=== PATIENT | male | born 1950 | race Asian ===

== ENCOUNTER → 2024-06-07 | Outpatient (CLI) | payer SELFPAY ==
--- NOTE | 2024-06-07 08:27 | MRI_ITS ---
HISTORY: Lumbar pain x 2 years. TECHNIQUE: Multiplanar and multisequence MR images of the lumbar spine were obtained without intravenous contrast. 172 images. COMPARISON: CR same day. FINDINGS: VERTEBRAE: Vertebral body heights maintained. Mild degenerative endplate changes at multiple levels. Small L2 and L4 vertebral body hemangiomas incidentally noted. ALIGNMENT: No anterior or posterior subluxation. Mild scoliosis. CONUS: Normal morphology and position of the conus medullaris at L2. Tortuosity and redundancy of cauda equina nerve roots secondary to spinal canal stenosis. INTERVERTEBRAL DISCS: T12-L1: No significant posterior disc protrusion, central canal stenosis, or foraminal narrowing. L1-2: Mild right paracentral disc protrusion with facet arthropathy resulting in minimal narrowing of the thecal sac. No significant foraminal narrowing. L2-3: Mild disc bulge with facet arthropathy resulting in mild central canal stenosis and bilateral foraminal narrowing. L3-4: Mild disc bulge with facet arthropathy resulting in mild-moderate central canal stenosis and bilateral foraminal narrowing. L4-5: Moderate left paracentral disc protrusion with facet arthropathy resulting in left L5 nerve root impingement, severe central canal stenosis, moderate bilateral foraminal narrowing. L5-S1: Posterior disc protrusion with facet arthropathy resulting in mild-moderate central canal stenosis and moderate bilateral foraminal narrowing. SOFT TISSUES: No paraspinal fluid collection. MRI/Spine Lumbar (Routine) IMPRESSION: Multilevel degenerative disc disease as above. Left paracentral disc protrusion at L4-5 resulting in severe spinal canal stenosis, left nerve root impingement, and moderate bilateral foraminal narrowing. Electronically Signed: Mera Lilly MD at 15:23 EDT ,
--- NOTE | 2024-06-07 09:27 | RAD_ITS ---
INDICATION: Worsening low back pain EXAMINATION/TECHNIQUE: X-RAY - XR Spine Lumbar Min 4 Views COMPARISON: None. FINDINGS: VERTEBRAE: Preserved vertebral body height. No fracture. 4 mm retrolisthesis L2-3, 2 mm retrolisthesis L3-4, 6 mm spondylolisthesis L4-5. Minimal change on flexion and extension lateral views. Preservation of the normal lumbar lordosis. DISCS: Degenerative disc space narrowing at L3-4 and L4-5. INCLUDED ABDOMEN: Included bowel gas pattern is non-obstructive. RAD/L/S Spine Min 4 Views IMPRESSION: Degenerative disc disease without evidence of significant instability. Electronically Signed: Louis Mar MD at 17:03 EDT ,
== END | disposition home or self-care (01) ==
PROVIDERS: Referring Provider Orthopaedic Surgery Orthopaedic Surgery of the Spine; Visit Provider Orthopaedic Surgery Orthopaedic Surgery of the Spine
DX: M48.062 Spinal stenosis, lumbar region with neurogenic claudication (principal)
CPT/HCPCS: 72110; 72148

== ENCOUNTER 2024-06-11 15:08 | Inpatient (IN) | payer SELFPAY ==
--- NOTE | 2024-06-09 12:08 | EKG12_ITS ---
Test Reason : PREOP Blood Pressure : / mmHG Vent. Rate : 072 BPM Atrial Rate : 072 BPM P-R Int : 124 ms QRS Dur : 080 ms QT Int : 364 ms P-R-T Axes : 057 023 067 degrees QTc Int : 398 ms Normal sinus rhythm Nonspecific T wave abnormality Abnormal ECG Confirmed by ARMINDA VIERA, TISHA ([id number]), story editor PARKER AMES ([id number]) on 06/09/2024 1:23:17 PM Referred By: STANLEY Confirmed By:TISHA HILLIARD MD
[2024-06-09 13:33] LABS: Absolute Lymphocyte Count 1.51 X10^3/uL (0.83-4.51); Basophil# 0.06 X10^3/uL; Basophil% 0.9 % (0-1); Eosinophil# 0.36 X10^3/uL; Eosinophils% 5.5 % (0-5); Hematocrit 41.3 % (40-54); Hemoglobin 12.8 g/dL (13.0-16.5); Lymphocyte # 1.51 X10^3/ul (0.83-4.51); Lymphocyte % 23.1 % (19-41); Mean Corpuscular Volume 83.8 fL (80-94); Mean Platelet Vol. 9.2 fl (6.2-12.0); Monocyte# 0.62 X10^3/uL; Monocyte% 9.5 % (0-10); NRBC Flagged by Analyzer 0 % (0-5); Neutrophil # 3.97 X10^3/uL (2.7-7.7); Neutrophil % 60.7 % (47-70); Platelet Count 418 K/mm3 (150-450); RBC Distribution Width CV 15.2 % (11.6-14.6); RBC Distribution Width SD 45.8 fl (35.1-43.9); Red Blood Count 4.93 M/mm3 (4.6-6.2); White Blood Count 6.5 K/mm3 (4.4-11.0)
[2024-06-09 13:53] LABS: Magnesium 2.1 mg/dL (1.6-2.6)
[2024-06-09 13:56] LABS: Anion Gap 5 (5-15); BUN 16 mg/dL (7-18); BUN/Creat Ratio 14.2 RATIO (10-20); Calcium,Total 8.9 mg/dL (8.5-10.1); Chloride 102 mmol/L (98-107); Creatinine, Serum 1.13 mg/dL (0.70-1.30); EST Glomerular Filtration Rate 67 mL/min (>60); Est Glom Filt Rate - Afr Amer 81 mL/min (>60); Glucose 87 mg/dL (74-106); Potassium 3.8 mmol/L (3.5-5.1); Sodium Level 136 mmol/L (136-145)
[2024-06-11] VITALS (16 sets, daily range): BP systolic 102–195; BP diastolic 48–115; PULSE 62–82; RESP 13–18; TEMP 36.1–36.9; O2SAT 95–100; BMI 27.4; BMI 27.3
[2024-06-11] MEDS: Lactated Ringers 1,000 ML 15 ML IV ×4 (06:14→21:31)
[2024-06-11] MEDS: Magnesium 1 GM over 15 mins IV (06:14)
[2024-06-11 06:43] LABS: Bedside Glucose 74 mg/dL (74-106)
--- NOTE | 2024-06-11 07:09 | PCM.PRE.AN2 ---
ASA Classification* ASA Classification ASA Classification: 3 Assessment & Plan Anesthesia* Anesthesia Assessment Anesthesia Assessment: Discussed sedation and/or anesthesia options, risks, benefits, and alternatives with patient/parents/legal guardian/POA. Questions invited. The patient/parents/legal guardian/POA seems to understand and agrees to proceed with anesthesia plan. Reviewed the physical assessment, medical history, allergy history and patient home medications list prior to surgery/procedure/anesthetic and documented any changes. Performed airway and anesthesia risk assessments. Anesthesia Type Anesthesia Type: General (Minimize narcotics) Anesthesia Focused Assessment* Temperature: 98.5 F Pulse Rate: 70 Blood Pressure: 148/70 Respiratory Rate: 16 Pulse Ox: 100 Airway Assessment Mouth opens: >3 cm Mallampati Score: II Focused Labs Anesthesia Preop lab: CBC WBC 6.5 K/mm3 (4.4-11.0) 06/09/24 12:43 RBC 4.93 M/mm3 (4.6-6.2) 06/09/24 12:43 Hgb 12.8 g/dL (13.0-16.5) L 06/09/24 12:43 Hct 41.3 % (40-54) 06/09/24 12:43 Plt Count 418 K/mm3 (150-450) 06/09/24 12:43 CHEMISTRY Potassium 3.8 mmol/L (3.5-5.1) 06/09/24 12:43 Sodium 136 mmol/L (136-145) 06/09/24 12:43 Magnesium 2.1 mg/dL (1.6-2.6) 06/09/24 12:43 BUN 16 mg/dL (7-18) 06/09/24 12:43 Creatinine 1.13 mg/dL (0.70-1.30) 06/09/24 12:43 Glucose 87 mg/dL (74-106) 06/09/24 12:43 POC Glucose 74 mg/dL (74-106) 06/11/24 06:09 COAG Pre-Assessment Diagnosis/Proposed Procedure Planned Operative Procedure(s): 360 LUMBAR FUSION L4-5 POSS INCLUDE L5-S1 Anesthesia History Anesthesia History - financial management consultant: Anesthesia History - financial management consultant Hx Hospitalization No 06/08/24 11:39 Any Problems With Anesthesia No 06/08/24 11:39 Cholinesterase deficiency No 06/08/24 11:39 You/Your Family Experience No 06/08/24 11:39 fever (hyperthermia) with Relationship Recent Exposure to Contagious No 06/11/24 06:04 Disease Does patient have nerve No 06/08/24 11:39 stimulator Patient instructed to have device shut off --Does patient have Pacemaker No 06/11/24 06:04 or ICD? When Was Last Pacemaker Check QUESTION #4 FULL TEXT: You/Your Family Experience fever (hyperthermia) with Anesthesia Last Oral Intake Last Oral intake: Last Oral Intake NPO since 03:30 06/11/24 06:04 Meds taken in AM with sips of Yes 06/11/24 06:04 water? Meds patient instructed to see mar 06/11/24 06:04 take am of surgery PONV PONV - financial management consultant: PONV - financial management consultant Female No 06/08/24 11:39 HX of Motion Sickness No 06/08/24 11:39 HX of N/V After Surgery No 06/08/24 11:39 Non-Smoker Yes 06/08/24 11:39 Duration of Surgery greater Yes 06/08/24 11:39 than 60 minutes Number of Risk Factors 2 06/08/24 11:39 PONV Score Moderate Risk 06/08/24 11:39 Height & Weight Height & Weight: Anesthesia: Height & Weight Height 5 ft 4 in 06/11/24 06:04 Weight: 72.575 kg 06/11/24 06:04 Body Mass Index (BMI) 27.4 06/11/24 06:04 Respiratory Assessment Respiratory Assessment - financial management consultant: Respiratory Tract Infection Hx - financial management consultant Hx Respiratory Tract Infection No 06/08/24 11:39 STOP Sleep Apnea STOP Sleep Apnea - financial management consultant: STOP Sleep Apnea - financial management consultant Hx Hypertension Yes: CONTROLLED WITH MEDS 06/08/24 11:39 Hx Sleep Apnea No 06/08/24 11:39 CPAP BIPAP Do you snore loudly (louder Yes 06/08/24 11:39 than talking or can be heard Do you often feel tired/ No 06/08/24 11:39 fatigued/ sleepy during daytime? Has anyone observed you stop No 06/08/24 11:39 breathing during sleep? STOP Results Positive 06/08/24 11:39 QUESTION #5 FULL TEXT : Do you snore loudly (louder than talking or can be heard through closed doors)? Tobacco Use History Tobacco Use History - financial management consultant: Tobacco Use History - financial management consultant Tobacco Use Smoking Status Former smoker 06/08/24 11:39 Hx Tobacco Use No 06/08/24 11:39 Years Smoking Packs Smoked per Day Smoking Cessation Date was Yes - quit smoking within 15 06/08/24 11:39 within the last 15 years years Hx Smoking Cessation Date 11/17/20 06/08/24 11:39 Hx Smoking Cessation No 06/08/24 11:39 Counseling Hematologic Medial History Hematologic Hx - financial management consultant: Hematologic Medical Hx - singe winder Hx of Blood Transfusion No 06/08/24 11:39 Hx of Transfusion in last 3 No 06/08/24 11:39 Months Date of Last Transfusion (if within last 3 months) Ever experience any problems No 06/08/24 11:39 with transfusion(s)? Specify any problems Hx of Preganancy in last 3 N/A 06/08/24 11:39 Months Nurse Filling Out Transfusion DSCHRIBER 06/08/24 11:39 & Questions: Date: 06/08/24 06/08/24 11:39 Time: 11:41 06/08/24 11:39 Patient unable to answer at this time (ie. confused, unrespo /Reproduction History /Reproductive History - financial management consultant: /Reproductive Hx- financial management consultant Hx Now No 06/08/24 11:39 Gestational Age (in weeks): EDC: Hx Hx Para Hx Section SAB No 06/08/24 11:39 Active Medications Active Medications: Current Medications Generic Name Dose Route Start Last Admin Trade Name Freq PRN Reason Stop Dose Admin Magnesium Sulfate 1 gm/ 102 mls @ 408 mls/hr 06/11/24 07:30 06/11/24 06:14 Dextrose IV 06/11/24 07:44 408 mls/hr X1 ONE Administration Lactated Ringer's 1,000 mls @ 15 mls/hr 06/11/24 06:00 06/11/24 06:14 IV 15 mls/hr .Q48H ANTON Administration PFSH Medical History Wears glasses Alcohol use Gout Arthritis Bladder disease History of renal disease Anemia Back pain Gastric reflux Former smoker History of pain when walking Hypertension Hx of fracture of wrist Home Medications ?Medication ?Instructions ?Recorded ?Last Taken ?Type DOMPERIDONE 30 mg PO QODAY 06/08/24 Unknown History amlodipine 5 mg tablet 5 mg PO DAILY bp 06/08/24 06/11/24 03:30 History carboxymethylcellulose 0.5 1 drp EACH EYE DAILY 06/08/24 Unknown History %-glycerin 0.9 % eye drops clonazepam 0.25 mg disintegrating 0.25 mg PO QHS 06/08/24 Unknown History tablet febuxostat 40 mg tablet 40 mg PO QHS 06/08/24 Unknown History indapamide 1.25 mg tablet 1.5 mg PO DAILY 06/08/24 Unknown History mecobalamin (vitamin B12) 1,000 750 mcg PO DAILY 06/08/24 Unknown History mcg lozenges pantoprazole 40 mg tablet,delayed 40 mg PO DAILY 06/08/24 Unknown History release (Protonix) pregabalin 75 mg capsule 75 mg PO QHS 06/08/24 Unknown History tamsulosin 0.4 mg capsule (Flomax) 0.4 mg PO QHS 06/08/24 Unknown History telmisartan 20 mg tablet 20 mg PO DAILY bp 06/08/24 06/11/24 03:30 History Allergy/AdvReac Type Severity Reaction Status Date / Time No Known Allergies Allergy Verified 06/11/24 06:03 Social History Smoking Status: Former smoker Review of Systems (Anesthesia) ROS Narrative System reviewed and no additional complaints, except as documented.
[2024-06-11] MEDS: Acetaminophen 500 MG Tablet 1000 MG PO ×3 (07:28→21:40)
--- NOTE | 2024-06-11 07:30 | RAD_ITS ---
STUDY: X-RAY - LUMBAR SPINE REASON FOR EXAM: Male, 73 years old. FUSION TECHNIQUE: 3 view(s) of the lumbar spine were obtained. COMPARISON: None FINDINGS: Intraoperative imaging provided for fusion at the L4-L5 level with prosthetic disc placement. RAD/Lumbar Spine 2 or 3 Views IMPRESSION: Intraoperative imaging provided for fusion at the L4-L5 level with prosthetic disc placement. Electronically Signed: Emery Pina MD at 13:43 EDT ,
[2024-06-11] MEDS: Cefazolin 2 GM in 0.9% Normal Saline (100mL Bag) 100 ML IV (07:39)
[2024-06-11] MEDS: THROMBIN (RECOMBINANT) 20,000 UNIT VIAL 20000 UNIT TOPICAL (11:10)
[2024-06-11] MEDS: Ropivacaine 0.5% 30 ML Vial (11:10)
[2024-06-11] MEDS: Lactated Ringers 1,000 ML 100 ML IV (12:00)
--- NOTE | 2024-06-11 12:57 | PCM.OPRPT ---
Report of Operation Description of Surgical Findings:: Preoperative diagnosis: Degenerative spondylolisthesis with spinal stenosis L4-5 Postoperative diagnosis: Same Procedures: #1 oblique lumbar interbody fusion minimally invasive #2 anterior lateral spinal fusion CPT code 56066 #3 insertion of cage CPT code 33856 #4 bone graft aspirate from vertebral body CPT code 70007 Surgeon: Dr. Doran Readers' Advisory Service Librarian surgeons Dr. More and Dr. Lamar Estimated blood loss 50 cc Anesthesia General endotracheal administered by [facility] Drains: None Complications: None Procedure patient was taken to the OR where he was placed under general endotracheal anesthesia he was then placed in the left right lateral decubitus position on the OR table. A Yepez catheter was inserted. The patient was then placed in the right lateral decubitus position and secured. Using fluoroscopy we were able to desi the skin at the site of the incision. The approach was performed by Dr. More. The skin was then prepped and draped in usual fashion. The approach is then described in Dr. More's operative summary. Once to the disc we identified the L4-5 disc this was marked and and again fluoroscopy was used to confirm the level. First an annulotomy was performed with a long handled knife. Pituitary rongeurs were then used to remove disc from the disc base all the way back to the right side of the annulus. Curettes were used to prepare the endplates and the cartilage was removed off of the endplates at the bottom of L4 and the top of L5. Near complete discectomy was performed. We used a serially increasing sizes of trials were used. The Jamshidi needle was used to aspirate the bone. The aspirate was then mixed with the allograft bone chips. We finally decided on a Vendormateuy cougar cage which was 14 high by 45 mm long. It had 15 degrees of lordosis. It was packed with cortical cancellous allograft chips mentioned above. This was then inserted into the disc base and countersunk slightly. This was observed preserved on fluoroscopy and was found to be in very satisfactory condition. We did place a screw with a washer into the lower body of L4 to serve as a block. We did this 5 position and all in place and then entering with the self-tapping screw. The closure is then described in Dr. More's operative summary. This is Dr. Doran dictating.
--- NOTE | 2024-06-11 13:06 | PCM.POST.ANE ---
Anesthesia: Postop Eval I Current Vital Signs Temperature: 97 F Pulse Rate: 82 Blood Pressure: 131/79 Respiratory Rate: 18 Pulse Ox: 98 Oxygen Delivery Method: Room Air Assessment Airway patent: Yes Spontaneous unlabored respirations: Yes Mental status: Awake and Calm nausea: No Vomiting: No Anesthesia Complication: No Fluid Hydration Crystalloid volume administer (ml): 2,100 Total IV fluid infused: 2,100 Progress Note Anesthesia document: Postop Eval 1 completed: Yes
--- NOTE | 2024-06-11 13:10 | PCM.OPRPT ---
Report of Operation Description of Surgical Findings:: Preoperative diagnosis: Degenerative spondylolisthesis L4-5 with severe spinal stenosis. Postoperative diagnoses: The same Procedures: #1 posterior fusion L4-5 CPT code 70100 #2 posterior minimally invasive pedicle screw instrumentation L4-5 CPT code 13036 #3 allograft cancellous chips CPT code 12802 #4 complete L4-5 laminectomy with decompression CPT code 82347 Surgeon: Dr. Doran Senior Policy Advisor Dr. Lamar and Huang DOAN Anesthesia: General endotracheal administered by [facility] service associate EBL: 50 cc Drains: None Complications: None Procedure: Once the anterior surgery was done and Dr. More closed the wound the patient was then placed in the prone position on the Jaime table. After appropriate positioning with care to protect his bony prominences cervical spine and facial features ulnar nerves of both elbows brachial plexus on both sides and the genitalia the back was prepped and draped standard fashion. Using fluoroscopy were able to desi out the lateral borders of the pedicles of L4 and L5 this was marked on the skin we then moved about 1 inch lateral to this 4 vertical incision on both sides. We open the fascia in either direction. Using blunt finger dissection I was able to go down and feel the transverse process. The L4 pedicles were done first. We were able to place the DePuy pedicle screws onto the edge of the pedicle under direct visualization. Once they were properly positioned to the right edge of the pedicle on the right and the 1 on the left we were able to advance the guidewire to about 15 mm. We then were able to enter with the pedicle screw under direct visualization with fluoroscopy until they were properly positioned. We saw this on both the AP and lateral projections. We used 7 mm screws. We then removed the chair car driver from the 2 upper ones leaving the towers in place. We then identified the L5 pedicles using fluoroscopy were able to place the entry pin to the lateral side of each pedicle. We then tamped the pedicle screw to be able to start into the bone we then advanced the guidewires about 15 mm. We were then able to follow the guidewire in to the middle of both pedicles with the screwdriver. Once in place we again were able to visualize in both AP and lateral projection and then removed the then used the Viper instrumentation rods that we ended up using were 50 mm in length on both sides. Put 1 in from the top and the other went from the bottom through both hours. This was then checked to make sure that they were indeed through the towers and using the guide and held it with a wrench we were able to enter with the locking screws. These were initially tightened by hand and tightened with a larger screwdriver the second ones were placed through the tower itself and screwed into place. Final we used the torque wrench to tighten all 4 screws. Bur was utilized to roughen the facet joint on 1 side afterwards cancellous bone allograft mentioned earlier was placed over the Decortin area. We had good hemostasis at the end of the case. The closure was done in layers with 0 Vicryl for the fascia and 2-0 Vicryl for the subcutaneous tissues and Monocryl for the skin. Second portion of the surgery was then the decompression. Made a longitudinal incision centered over L4-5. Subcutaneous tissues were incised length of the skin incision. I elevated the paravertebral muscles off the lamina of L5 L4 on the right in the left. The super slide retractors were put in place. I removed the spinous process of L4 double-action rongeurs. Also thinned the lamina down on both sides with the double-action rongeurs. I then used a small angled curette to release ligamentum flavum off the underside of the lamina and the laminectomy was carried out. The ligamentum flavum was left in place as long as possible to protect the dura. I went up as far as necessary where the ligamentum flavum will reach is upper limit. I also released some off of the top of the lamina of L5. A laminectomy was carried out here also. I then split the ligamentum flavum in the midline and began its removal with a 45 degree Kerrison rongeurs. I used mostly the 4 mm Kerrisons. I was able to remove the ligamentum flavum all the way laterally on both sides. I also did a medial facetectomies at the same time with a 45 degree Kerrison rongeurs. At the end of the case I was able to check the L5 nerve roots on both sides as they exited in the foramen and was able also to feel the foramen above and L4. These were open without pressure at this point. We had reasonable hemostasis at the end of the case. Bleeders were controlled with cautery. I thoroughly irrigated quite frequently in the course of the case. At the end of the case I thoroughly irrigated with copious amounts of sterile saline. I then used Irrisept and filled the wound with it and kept it there for 3 minutes to eradicate any possible contamination. Once this was done I placed Gelfoam over the laminectomy site. Then began closure closing the lumbar fascia with [id number] suture with #1 Vicryl. This was followed by the closure of subcutaneous tissues with 2-0 Vicryl in interrupted fashion. Finally the skin was brought together with skin clips. Sterile dressings were then applied over all 3 posterior incisions. Note the Dermabond was placed on the 2 lateral incisions. The patient was then recovered in the OR he was moved to his hospital bed and taken to recovery in satisfactory condition. This is the end of operative summary on Severino Eldridge. This is Dr. Doran dictating.
--- NOTE | 2024-06-11 13:13 | PCM.PN.HOSP ---
Reason for Visit Reason for Visit: Diagnoses Encounter for other preprocedural examination (06/11/24) Subjective Subjective Patient s/p oblique lumbar interbody fusion minimally invasive, anterior lateral spinal fusion, insertion of cage and bone graft aspirate from her vertebral body per Dr. Doran. Patient evaluated in PACU with notes ongoing back spasms and discomfort, currently being given low dose ativan to assist with relaxation. He notes severe discomfort and awaiting repeat BP to be able to consider dilaudid which was discussed with him. He denies any numbness and is moving both lower extremities. He denies nausea. Patient denies fevers, chills, emesis, abdominal pain, chest pain or dyspnea. Objective Data Objective Data Vital Signs: Vital Signs Temp Pulse Resp BP Pulse Ox O2 Del Method 97 F L 82 18 131/79 H 98 Room Air 06/11/24 13:07 06/11/24 13:07 06/11/24 13:07 06/11/24 13:07 06/11/24 13:07 06/11/24 13:07 Oxygen Delivery Method Room Air Weight: 160 lb Body Mass Index (BMI) 27.4 Intake & Output: Intake and Output for Last 24 Hours 06/09/24 06/10/24 06/11/24 23:59 23:59 23:59 Intake Total 212 / 212 Output Total 800 / 800 Balance -588 / -588 Lab / Micro Data 06/09/24 12:43 06/09/24 12:43 Labs: Laboratory Results - last 24 hr 06/11/24 06:09: POC Glucose 74 Micro: Microbiology 06/09/24 12:43 Swab (Method) Nasal Screen MRSA/MSSA - Final Physical Exam Narrative Physical Examination: General: Awake, alert, oriented to self, place and recent events, recent transition to PACU, notably uncomfortable, spasms in the back in addition to pain, appears uncomfortable. Skin: Normal color, normal turgor, no icterus, no cyanosis except occasional staged ecchymoses, recent OR with dressings in place with no drainage. HEENT: AT/NC, EOMI, PERRLA, dry MM. Lungs: Mildly diminished, greater bases, appropriate effort, no rales, ronchi or wheezing. Heart: Regular rate and rhythm; no gallop, rub audible. Abdomen: Soft, NTTP, ND, distant normal BS, no appreciated HSM. Extremities: No cyanosis, no clubbing, no marked peripheral edema, moving both lower extremities. Neurological: Patient awake, alert, oriented as noted, cognitive function improving since recent transition from OR to PACU however still not baseline intact likely secondary to sedation and pain; pupils equally reactive to light and accommodation, cranial nerves appear at this time grossly normal but difficult exam as recent transition from OR to PACU, moving all 4 extremities, no focal deficits, strength severely globally decreased secondary to recent operative intervention and pain. Psychiatric: Affect appears uncomfortable, no acute evidence of depressive or anxiety feelings. Assessment & Plan Assessment/Plan (1) Spinal stenosis of lumbar region with neurogenic claudication: PLAN: Plan The patient is a 73 y/o M w/ PMHx: CKD stage II per GFR, BPH, Gout, Former tobacco use, HTN, OA, GERD, Chronic anemia, Spinal Stenosis lumbar region with neurogenic claudication who presents to the [facility] 06[facility]24 with history of ongoing lumbar back pain with known degenerative spondylolisthesis with spinal stenosis L4-5 for planned oblique lumbar interbody fusion minimally invasive, anterior lateral spinal fusion, insertion of cage and bone graft aspirate from her vertebral body per Dr. Doran. #1. Persistent lumbar back pain with history of spinal stenosis of the lumbar region with neurogenic claudication: Failed conservative therapies and treatments, admitted per Dr. Doran for 06/11/2024 oblique lumbar interbody fusion minimally invasive, anterior lateral spinal fusion, insertion of cage, bone graft aspirate from vertebral body post-operative pain management, bowel regimen, DVT Prophylaxis, PRN BZD regimen per surgery discretion for muscle spasms/strain, PT/OT/CM per Orthopedic surgery discretion. #2. Hypertension: Continue home regimen including telmisartan, amlodipine, indapamide with hold parameters as needed, PRN hydralazine. #3. Gout: We will continue patient home febuxostat regimen. #4. Suspected Chronic anemia, normocytic: 06/09/2024 CBC with hemoglobin 12.8, MCV 83.8, baseline hemoglobin unclear prior as no labs for comparison but does have known history, trend CBC per primary service discretion. #5. Suspected Chronic Kidney Disease Stage II per GFR: 06/09/2024 BUN/Cr 16/1.13, GFR 67, baseline renal function unknown but does have underlying chronic kidney disease reported in chart, trend renal function/BMP per primary service discretion. #6. GERD: We will continue patient on PPI. #7. BPH: We will continue patient on Flomax regimen. #8. GI motility: Will attempt to continue patient home domperidone but if unable as NF may need to have patient bring own home versus pharmaceutical interchange as able. #9. DVT prophylaxis: Encourage SCDs, defer chemoprophylaxis to surgery discretion given recent OR. Charges/Coding Visit Charges Inpatient E&M: 50457 Subs Hosp L3
--- NOTE | 2024-06-11 15:03 | POSTOPAN2_ITS ---
Anesthesia Postop Eval I Sum Postop Eval Completion status Anesthesia document: Postop Eval 1 completed: Yes Anesthesia Postop Eval I Summary Anesthesia Postop Eval I Summary: Anesthesia Postop Eval I: Assessment Summary Airway patent Yes 06/11/24 13:07 SUEDING MACHINE [email or web address] Spontaneous unlabored Yes 06/11/24 13:07 SUEDING MACHINE OPERATOR.SCHR respirations Mental status Awake,Calm 06/11/24 13:07 SUEDING MACHINE OPERATOR.SCHR nausea No 06/11/24 13:07 SUEDING MACHINE OPERATOR.SCHR Vomiting No 06/11/24 13:07 [facility]EDING MACHINE [facility]ATOR[facility] Anesthesia Postop Eval I: Fluid Summary Crystalloid volume administer 2,100 06/11/24 13:07 SUEDING MACHINE OPERATOR.SCHR (ml) Colloids volume administered ( ml) Blood Product volume administered (ml) Total IV fluid infused 2,100 06/11/24 13:07 SUEDING MACHINE OPERATOR.SCHR Anesthesia Postop Eval I: Summary Notes Anesthesia Complication No 06/11/24 13:07 SUEDING MACHINE OPERATOR.[facility] Anesthesia Complication Comment: Post-operative progress note Anesthesia: Postop Eval II Evaluation Mental status: Asleep (Arousable) Pain Level: 1 nausea: No Vomiting: No Complications Anesthesia Complication: No
--- NOTE | 2024-06-11 15:03 | PCM.POSTANE2 ---
Anesthesia Postop Eval I Sum Postop Eval Completion status Anesthesia document: Postop Eval 1 completed: Yes Anesthesia Postop Eval I Summary Anesthesia Postop Eval I Summary: Anesthesia Postop Eval I: Assessment Summary Airway patent Yes 06/11/24 13:07 [email or web address] Spontaneous unlabored Yes 06/11/24 13:07 SAUSAGE [email or web address] respirations Mental status Awake,Calm 06/11/24 13:07 [email or web address] nausea No 06/11/24 13:07 SAUSAGE CUTTER.[email or web address] Vomiting No 06/11/24 13:07 [facility] Anesthesia Postop Eval I: Fluid Summary Crystalloid volume administer 2,100 06/11/24 13:07 [email or web address].SCHR (ml) Colloids volume administered ( ml) Blood Product volume administered (ml) Total IV fluid infused 2,100 06/11/24 13:07 SAUSAGE [email or web address] Anesthesia Postop Eval I: Summary Notes Anesthesia Complication No 06/11/24 13:07 [facility] CUTTER.[facility] Anesthesia Complication Comment: Post-operative progress note Anesthesia: Postop Eval II Evaluation Mental status: Asleep (Arousable) Pain Level: 1 nausea: No Vomiting: No Complications Anesthesia Complication: No
[2024-06-11] MEDS: Cefazolin 1 GM/50 ML BAG IV ×2 (15:29→22:51)
[2024-06-11] MEDS: oxyCODONE 5 MG Tablet PO (17:12)
[2024-06-11] MEDS: Febuxostat 40 MG TABLET PO (21:40)
[2024-06-11] MEDS: Tamsulosin HCl 0.4 MG Capsule PO (21:40)
[2024-06-11] MEDS: Pregabalin 75 MG Capsule PO (21:46)
[2024-06-11] MEDS: clonazePAM 0.5 MG Tablet 0.25 MG PO (21:46)
[2024-06-12] VITALS (7 sets, daily range): BP systolic 118–147; BP diastolic 59–73; PULSE 68–71; RESP 16–18; TEMP 36.8–37.3; O2SAT 95–99; BMI 27.3
[2024-06-12] MEDS: Acetaminophen 500 MG Tablet 1000 MG PO ×3 (05:18→20:44)
[2024-06-12] MEDS: oxyCODONE 5 MG Tablet PO (07:02)
--- NOTE | 2024-06-12 07:24 | PCM.PN.HOSP ---
Reason for Visit Reason for Visit: Diagnoses Spinal stenosis, lumbar region with neurogenic claudication (06/11/24) Encounter for other preprocedural examination (06/11/24) Objective Data Objective Data Vital Signs: Vital Signs Temp Pulse Resp BP Pulse Ox O2 Del Method O2 Flow Rate 98.4 F 71 18 134/67 H 96 Room Air 4 06/12/24 05:10 06/12/24 05:10 06/12/24 05:10 06/12/24 05:10 06/12/24 05:10 06/12/24 05:10 06/11/24 15:08 Oxygen Flow Rate (L/min) 4 Oxygen Delivery Method Room Air Weight: 159 lb 15.831 oz Body Mass Index (BMI) 27.3 Intake & Output: Intake and Output for Last 24 Hours 06/10/24 06/11/24 06/12/24 23:59 23:59 23:59 Intake Total 3665.00 / 3665.00 449.25 / 449.25 Output Total 1625 / 1625 600 / 600 Balance 2040.00 / 2040.00 -150.75 / -150.75 Lab / Micro Data 06/12/24 08:00 06/12/24 08:00 Micro: Microbiology 06/09/24 12:43 Swab (Method) Nasal Screen MRSA/MSSA - Final Radiography Diagnostic Testing: Radiology Impression Lumbar Spine X-Ray 06/11/24 07:30 IMPRESSION: Intraoperative imaging provided for fusion at the L4-L5 level with prosthetic disc placement. Electronically Signed: Emery Pina MD at 13:43 EDT , Physical Exam Narrative Seen and examined. Sitting upright in the chair. Had 360 degree fusion. Has not passed flatus. No chest pain or shortness of breath. Afebrile. Yepez catheter was removed in the morning. History of BPH and nocturnal frequency on Flomax. Physical exam General: Alert, Oriented x3, Cooperative HEENT: Atraumatic, PERRLA, EOMI, Normocephalic Oral: No Gingival or Mucosal Lesions/ Ulcerations Neck: Supple, No JVD, Negative Carotid Bruits Chest wall/Lungs: Air entry diminished in bilateral lung bases. No crepitation/rhonchi/wheezing Cardiovascular: Regular rate, Regular Rhythm, Normal S1, Normal S2, No M/G/R Abdomen: Bowel Sounds Present, Soft, Non Tender, Non-Distended : No dysuria. No renal angle tenderness. No suprapubic tenderness. Extremities: No edema, Capillary Refill Less than 3 Seconds Skin: No rashes, No breakdown Musculoskeletal: No Tenderness to Palpation of Joints or Extremities Neurological: Cranial nerves II-XII grossly intact, DTR 2+/4. No acute focal neurological deficit. Psych/Mental Status: Normal Affect, Appropriate. Assessment & Plan Assessment/Plan (1) Spinal stenosis of lumbar region with neurogenic claudication: PLAN: Plan The patient is a 73 y/o M history of ongoing lumbar back pain with known degenerative spondylolisthesis with spinal stenosis L4-5 for planned oblique lumbar interbody fusion minimally invasive, anterior lateral spinal fusion, insertion of cage and bone graft aspirate from her vertebral body per Dr. Doran. #1. Persistent lumbar back pain with history of spinal stenosis of the lumbar region with neurogenic claudication: Failed conservative therapies and treatments, admitted per Dr. Doran for 06/11/2024 oblique lumbar interbody fusion minimally invasive, anterior lateral spinal fusion, insertion of cage, bone graft aspirate from vertebral body post-operative pain management, bowel regimen, DVT Prophylaxis, muscle relaxant Robaxin, PT/OT/CM per Orthopedic surgery discretion. #2. Hypertension: Continue home regimen including telmisartan, amlodipine, indapamide with hold parameters. Antihypertensive medications spaced out over 2 hours. Discussed with the nursing staff. #3. Gout: l continue patient home febuxostat regimen. #4. Suspected Chronic anemia, normocytic: 06/09/2024 CBC with hemoglobin 12.8, MCV 83.8 06/12 mild drop in H&H from preop 12.8- 11.2 g%. Platelet count normal. Does not meet criteria for acute anemia. #6. GERD: continue patient on PPI. #7. BPH: continue patient on Flomax regimen. Yepez catheter removed in the morning. Try spontaneous voiding urine. #8. GI motility: Will attempt to continue patient home domperidone but if unable as NF may need to have patient bring own home versus pharmaceutical interchange as able. #9. DVT prophylaxis: Encourage SCDs, defer chemoprophylaxis to surgery discretion given recent OR. Patient is hemodynamically stable. Right lumbar spine x-ray in the morning and rescheduled. PT and OT. Patient does not have significant back pain. Medically stable for discharge in the afternoon. Charges/Coding Visit Charges Inpatient E&M: 84174 Subs Hosp L2
--- NOTE | 2024-06-12 07:43 | RAD_ITS ---
STUDY: X-RAY - LUMBAR SPINE REASON FOR EXAM: Male, 73 years old. Recent lumbar spine surgery TECHNIQUE: 2 view(s) of the lumbar spine were obtained. COMPARISON: 06/07/2024 FINDINGS: Normal lumbar lordosis. There is a dextroscoliosis of the lumbar spine. There is a normal alignment of the vertebrae. Bilateral pedicular screws with posterior fusion hardware and laminectomy at L4-L5, new since prior exam. A left lateral fixation screw of L4 vertebral body is also new. Interbody implant at L4-L5. No compression fracture. Surgical josé overlie the posterior soft tissues with adjacent soft tissue swelling and air compatible with recent surgery. RAD/Lumbar Spine 2 or 3 Views IMPRESSION: 1. Recent surgery at L4-L5. Stable alignment. Electronically Signed: Ben Stephens MD ([place]) at 12:35 EDT ,
[2024-06-12 08:10] LABS: Absolute Lymphocyte Count 1.24 X10^3/uL (0.83-4.51); Absolute Neutrophil Count 5.2 X10^3/uL (2.0-7.7); Basophil# 0.01 X10^3/uL; Basophil% 0.1 % (0-1); Eosinophil# 0.01 X10^3/uL; Eosinophils% 0.1 % (0-5); Hematocrit 34.8 % (40-54); Hemoglobin 11.2 g/dL (13.0-16.5); Lymphocyte # 1.24 X10^3/ul (0.83-4.51); Lymphocyte % 17.6 % (19-41); Mean Corp Hgb Conc 32.2 g/dL (32-36); Mean Corpuscular Hgb 26.4 pg (27.0-32.0); Mean Corpuscular Volume 82.1 fL (80-94); Mean Platelet Vol. 8.8 fl (6.2-12.0); Monocyte% 8.5 % (0-10); NRBC Flagged by Analyzer 0 % (0-5); Neutrophil # 5.15 X10^3/uL (2.7-7.7); Neutrophil % 73.3 % (47-70); Platelet Count 289 K/mm3 (150-450); Red Blood Count 4.24 M/mm3 (4.6-6.2)
[2024-06-12 08:45] LABS: Anion Gap 4 (5-15); BUN 14 mg/dL (7-18); Calcium,Total 8.2 mg/dL (8.5-10.1); Chloride 99 mmol/L (98-107); Creatinine, Serum 1.27 mg/dL (0.70-1.30); EST Glomerular Filtration Rate 59 mL/min (>60); Est Glom Filt Rate - Afr Amer 71 mL/min (>60); Estimated Creatinine Clearance 46.59 ml/min; Glucose 111 mg/dL (74-106); Sodium Level 132 mmol/L (136-145)
[2024-06-12] MEDS: amLODIPine 5 MG Tablet PO (10:48)
[2024-06-12] MEDS: Glycerin/Hypromellose/PEG400 15 ml Bottle 1 DRP EACH EYE (10:49)
[2024-06-12] MEDS: Senna/Docusate Sodium 1 Tablet 2 TABLET PO ×2 (10:50→20:43)
[2024-06-12] MEDS: Methocarbamol 500 MG Tablet 1000 MG PO ×3 (10:50→20:43)
[2024-06-12] MEDS: Pantoprazole Sodium 40 MG Tablet PO (10:50)
--- NOTE | 2024-06-12 11:20 | CASEMGMT ---
HATTIE SNYDER Assessment Face to Face with patient for initial transition planning/care coordination assessment. HATTIE SNYDER introduced self and role at [facility], pt voices understanding. Pt is A&Ox4 and is resting comfortably in bed and is calm. Dr. Eldridge at bedside. Care providers, pharmacy, and demographics verified. Admitting dx: ERAS 360 Lumbar Fusion L4-5 PCP: No PCP, Denies list Specialists: Chente Preferred Pharmacy: [facility] Insurance: [facility] Package Plan Prescription Benefit: Yes LNOK: Nathanael Eldridge (Son), Yessenia Chente (DIL) Living Arrangements: Pt lives with his son and family in a two story home with a FFSU and 2 steps to enter the home ADLs/IADLs: [place] [employer] Transportation: Family. Denies concerns DME: Denies all DME uses. Pt is in need of a FWW. Dr. Eldridge states that he plans to buy the pt a FWW after DC and denies wanting to go through insurance. Dr. Eldridge given purchasing options with costs at this time. Denies further concerns. HHC/SNF: Denies history or needs Pt?s goal: Home Plan: Home with pt family. 6-Click is [address]. Dr[address] Eldridge and the pt both state that the pt is safe to DC home with the support of his family once he is medically ready. Denies HHC or SNF needs. Dr. Eldridge states that he may have the pt attend OP Tx at and will set this up for the pt. This HATTIE CM gave the pt and Dr. Eldridge packaging rebolledo plans for . Dr. Eldridge and the pt thank this RN LILLIAN at this time and deny further questions or concerns. Damari Rowley RN, CM
--- NOTE | 2024-06-12 12:46 | DCINST_ITS ---
Discharge Instructions Activity May shower in (days): 5 Lifting Restrictions: 15# Dressing / Incision Change Dressing in: do not change dressing Remove Dressing in: 4 days Follow Up Care Test Results: Test results from this visit will be discussed in further detail at your follow- up appointment, if applicable. Discharge Plan Admission Admit Date/Time: 06/11/24 05:37 Primary Reason for Your Visit: surgery Attending Provider: Mendez Doran Primary Care Provider: Care Physician,No Primary Consulting Providers: Kenan Colby Discharge Orders/Prescriptions Prescriptions: New meloxicam 7.5 mg Tablet 7.5 mg PO DAILY Qty: 30 0RF methocarbamol 500 mg Tablet 500 mg PO TID Qty: 30 0RF oxycodone 5 mg Tablet 2.5 - 5 mg PO Q4H PRN PRN (Reason: Pain Score 6-10) 5 Days Qty: 30 0RF sennosides-docusate sodium [Stimulant Laxative Plus] 8.6-50 mg Tablet 2 tab PO BID Qty: 20 0RF acetaminophen 500 mg Tablet 1,000 mg PO Q8 Qty: 0 0RF oxycodone 5 mg tablet 2.5 mg PO Q4H PRN PRN (Reason: Pain Score 4-10) 5 Days Qty: 10 0RF Rx Instructions: Oxycodone 2.5 mg for moderate pain and 5 mg for severe pain respectively. Continued tamsulosin [Flomax] 0.4 mg capsule 0.4 mg PO QHS clonazepam 0.25 mg tablet,disintegrating 0.25 mg PO QHS Rx Instructions: administer 30 minutes before bedtime amlodipine 5 mg tablet 5 mg PO DAILY carboxymethylcellulose-glycern 0.5-0.9 % drops 1 drp EACH EYE DAILY febuxostat 40 mg tablet 40 mg PO QHS DOMPERIDONE 30 mg PO QODAY Patient Comments: TAKES WITH PANTOPRAZOLE COMBINATION MED pantoprazole [Protonix] 40 mg tablet,delayed release (DR/EC) 40 mg PO DAILY indapamide 1.25 mg tablet 1.5 mg PO DAILY telmisartan 20 mg tablet 20 mg PO DAILY pregabalin 75 mg capsule 75 mg PO QHS mecobalamin (vitamin B12) 1,000 mcg lozenge 750 mcg PO DAILY Rx Instructions: allow to dissolve in mouth OR may chew lightly before swallowing Referrals / Follow Up: Care Physician,No Primary [Primary Care Provider] - Disposition Disposition (needs filled in before D/C Order can be placed): Home, Self Care
--- NOTE | 2024-06-12 12:49 | PCM.DC.SUM ---
Providers Date of Admission: 06/11/24 Primary Care Physician: Savanah Primary Care Phys Attending Physician: This is discharge summary on patient Severino Eldridge. This patient was admitted yesterday for surgical intervention. He underwent a 360 degree fusion at the L4-5 level. He also had a decompression at the same level. His postoperative course has been unremarkable. He has ambulated several times in the hallway with a walker and already reports that his neurogenic claudication symptoms are significantly better. Course he has significant amount of low back pain as expected but better than it was yesterday. Neurologically he is intact in both lower extremities. Currently he is dressing is dry. He will be discharged on several medications including 2.5 mg of oxycodone. He will also have Robaxin and meloxicam. He will stay until he is seen by therapy and he ambulates some stairs. After that he will be able to go home. Will follow-up in the office in a couple of weeks. This is the end of discharge summary on Mr. Eldridge. This is Dr. Doran dictating. Consultations 06/11/24 12:58 Consult: Hospitalist Routine Consulting Provider: Bryanna Page Reason for Consult: Medical Management EMERGENT Consult: No MD Notified: Yes Date Notified: 06/11/24 Time Notified: 12:58 Method of Notification: Verbal Reason For Visit: ERAS 360 Lumbar Fusion L4-5, possib Diagnosis Discharge Diagnosis (1) Spinal stenosis of lumbar region with neurogenic claudication: Status: Acute Code(s): M48.062 - Spinal stenosis, lumbar region with neurogenic claudication Medications at Discharge Home Medications DOMPERIDONE 30 mg PO QODAY 06/08/24 amlodipine 5 mg tablet 5 mg PO DAILY bp 06/08/24 carboxymethylcellulose 0.5 %-glycerin 0.9 % eye drops 1 drp EACH EYE DAILY 06/08/24 clonazepam 0.25 mg disintegrating tablet 0.25 mg PO QHS 06/08/24 febuxostat 40 mg tablet 40 mg PO QHS 06/08/24 indapamide 1.25 mg tablet 1.5 mg PO DAILY 06/08/24 mecobalamin (vitamin B12) 1,000 mcg lozenges 750 mcg PO DAILY 06/08/24 pantoprazole 40 mg tablet,delayed release (Protonix) 40 mg PO DAILY 06/08/24 pregabalin 75 mg capsule 75 mg PO QHS 06/08/24 tamsulosin 0.4 mg capsule (Flomax) 0.4 mg PO QHS 06/08/24 telmisartan 20 mg tablet 20 mg PO DAILY bp 06/08/24 acetaminophen 500 mg tablet 1,000 mg (2 x 500 mg) PO Q8 #0 tabs 06/12/24 meloxicam 7.5 mg tablet 7.5 mg PO DAILY #30 tabs 06/12/24 methocarbamol 500 mg tablet 500 mg PO TID #30 tabs 06/12/24 oxycodone 5 mg tablet 2.5 - 5 mg (0.5 - 1 x 5 mg) PO Q4H PRN PRN Pain Score 6-10 5 days #30 tabs 06/12/24 oxycodone 5 mg tablet 2.5 mg (1/2 x 5 mg) PO Q4H PRN PRN Pain Score 4-10 5 days #10 tabs 06/12/24 sennosides 8.6 mg-docusate sodium 50 mg tablet (Stimulant Laxative Plus) 2 tab PO BID #20 tabs 06/12/24 Weight / BMI Weight Weight: 159 lb 15.831 oz Body Mass Index (BMI) 27.3 ABG / Lab / Microbiology Data 06/12/24 08:00 06/12/24 08:00 Laboratory: Laboratory Results - last 24 hr 06/12/24 08:00: WBC 7.0, RBC 4.24 L, Hgb 11.2 L, Hct 34.8 L, MCV 82.1, MCH 26.4 L, MCHC 32.2, RDW Std Deviation 45.0 H, RDW Coeff of Valerie 15.0 H, Plt Count 289, MPV 8.8, Immature Gran % (Auto) 0.400, Neut % (Auto) 73.3 H, Lymph % (Auto) 17.6 L, [place] % (Auto) 8.5, Eos % (Auto) 0.1, Baso % (Auto) 0.1, Absolute Neuts (auto) 5.2, Absolute Lymphs (auto) 1.24, Nucleated RBC % 0, Sodium 132 L, Potassium 4.0, Chloride 99, Carbon Dioxide 29.0, Anion Gap 4 L, BUN 14, Creatinine 1.27, Estim Creat Clear Calc 46.59, Est GFR (MDRD) Af Amer 71, Est GFR (MDRD) Non-Af 59 L, BUN/Creatinine Ratio 11.0, Glucose 111 H, Calcium 8.2 L Microbiology: Microbiology 06/09/24 12:43 Swab (Method) Nasal Screen MRSA/MSSA - Final Radiography Diagnostic Testing: Radiology Impression Lumbar Spine X-Ray 06/11/24 07:30 IMPRESSION: Intraoperative imaging provided for fusion at the L4-L5 level with prosthetic disc placement. Electronically Signed: Emery Pina MD at 13:43 EDT , Lumbar Spine X-Ray 06/12/24 07:43 IMPRESSION: 1. Recent surgery at L4-L5. Stable alignment. Electronically Signed: Ben Stephens MD (Bro[place]) at 12:35 EDT , D/C Instructions May shower in (days): 5 Meaningful Use Info Meaningful Use Meaningful Use Diagnoses (Choose all that apply): None applicable Ischemic Stroke Statin Dosing Therapy Reference: STATIN DOSE THERAPY REFERENCE: * Patients > 75 years receive moderate or high dose statin therapy. * Patients 75 years or YOUNGER should receive HIGH intensity statin dose unless contraindicated. You will be required to document reason for non-treatment if statin daily dose does not meet guidelines. HIGH DOSE STATIN THERAPY DAILY Atorvastatin > than or = to 40 mg Rosuvastatin > than or = to 20 mg Amlodipine + Atorvastatin > than or = to 2.5/40 mg Ezetimibe + Simvastatin 10/80 mg Simvastatin 80mg Discharge Plan Admission Admit Date/Time: 06/11/24 05:37 Primary Reason for Your Visit: surgery Attending Provider: Mendez Doran Primary Care Provider: Care Physician,No Primary Consulting Providers: Kenan Colby Discharge Orders/Prescriptions Prescriptions: New meloxicam 7.5 mg Tablet 7.5 mg PO DAILY Qty: 30 0RF methocarbamol 500 mg Tablet 500 mg PO TID Qty: 30 0RF oxycodone 5 mg Tablet 2.5 - 5 mg PO Q4H PRN PRN (Reason: Pain Score 6-10) 5 Days Qty: 30 0RF sennosides-docusate sodium [Stimulant Laxative Plus] 8.6-50 mg Tablet 2 tab PO BID Qty: 20 0RF acetaminophen 500 mg Tablet 1,000 mg PO Q8 Qty: 0 0RF oxycodone 5 mg tablet 2.5 mg PO Q4H PRN PRN (Reason: Pain Score 4-10) 5 Days Qty: 10 0RF Rx Instructions: Oxycodone 2.5 mg for moderate pain and 5 mg for severe pain respectively. Continued tamsulosin [Flomax] 0.4 mg capsule 0.4 mg PO QHS clonazepam 0.25 mg tablet,disintegrating 0.25 mg PO QHS Rx Instructions: administer 30 minutes before bedtime amlodipine 5 mg tablet 5 mg PO DAILY carboxymethylcellulose-glycern 0.5-0.9 % drops 1 drp EACH EYE DAILY febuxostat 40 mg tablet 40 mg PO QHS DOMPERIDONE 30 mg PO QODAY Patient Comments: TAKES WITH PANTOPRAZOLE COMBINATION MED pantoprazole [Protonix] 40 mg tablet,delayed release (DR/EC) 40 mg PO DAILY indapamide 1.25 mg tablet 1.5 mg PO DAILY telmisartan 20 mg tablet 20 mg PO DAILY pregabalin 75 mg capsule 75 mg PO QHS mecobalamin (vitamin B12) 1,000 mcg lozenge 750 mcg PO DAILY Rx Instructions: allow to dissolve in mouth OR may chew lightly before swallowing Referrals / Follow Up: Care Physician,No Primary [Primary Care Provider] - Disposition Disposition (needs filled in before D/C Order can be placed): Home, Self Care
[2024-06-12] MEDS: Meloxicam 7.5 MG Tablet PO (13:17)
[2024-06-12] MEDS: Tamsulosin HCl 0.4 MG Capsule PO (20:43)
[2024-06-12] MEDS: Pregabalin 75 MG Capsule PO (20:44)
[2024-06-12] MEDS: clonazePAM 0.5 MG Tablet 0.25 MG PO (20:44)
[2024-06-12] MEDS: Febuxostat 40 MG TABLET PO (20:44)
[2024-06-13 03:00] VITALS: BP 157/64; PULSE 78; RESP 16; TEMP 37.7; O2SAT 97
[2024-06-13] MEDS: Acetaminophen 500 MG Tablet 1000 MG PO (05:12)
[2024-06-13 06:48] VITALS: O2SAT 95
[2024-06-13 09:00] VITALS: BP 117/66; PULSE 78; TEMP 37.2; O2SAT 99
[2024-06-13] MEDS: Methocarbamol 500 MG Tablet 1000 MG PO (09:46)
[2024-06-13] MEDS: Senna/Docusate Sodium 1 Tablet 2 TABLET PO (09:46)
[2024-06-13] MEDS: Pantoprazole Sodium 40 MG Tablet PO (09:46)
[2024-06-13] MEDS: Meloxicam 7.5 MG Tablet PO (09:47)
[2024-06-13] MEDS: Glycerin/Hypromellose/PEG400 15 ml Bottle 1 DRP EACH EYE (09:48)
[2024-06-13 11:09] VITALS: BP 115/70; PULSE 74; RESP 18; TEMP 37.2; O2SAT 98
--- NOTE | 2024-06-13 11:11 | PCM.HOSP.N ---
Hospitalist Note Patient was seen and examined today, he is up and walking around without any difficulty, his abdomen is distended and he has decreased bowel sounds but it is nontender. I talked to his son who was in the room at the time my exam (Dr. Eldridge) and he would like to take the patient home if possible, I contacted Dr. Doran and talked with him, Dr. Doran gave the okay for the patient to go home but he wants him on clear liquids until he has a bowel movement/passes gas. I relayed this to nursing. Nursing will put an order in for Dr. Doran to discharge the patient home.
--- NOTE | 2024-06-14 13:40 | OP.PCM_ITS ---
Report of Operation Date of Procedure: 06/11/24 Pre-Operative Diagnosis: Degenerative spondylolisthesis with spinal stenosis L 4-5 Post-Operative Diagnosis: same Surgery/Procedure Performed:: #1 oblique lumbar interbody fusion minimally invasive #2 anterior lateral spinal fusion CPT code 85054 #3 insertion of cage CPT code 38638 #4 bone graft aspirate from vertebral body CPT code 71339 Surgeon: Co surgeon Dr. Doran, Dr. More Type of Anesthesia: General Description of Procedure: HPI: Patient is a 73-year-old male with L4-L5 lumbar stenosis who was evaluated and felt to be appropriate for interbody fusion via oblique approach. Vascular surgery services are requested for exposure. Description of procedure: Upon obtaining form consent and verification correct patient procedure and site patient was taken the operating where he was placed under general anesthesia. He was then positioned prepped and draped in usual sterile fashion timeout performed. Oblique incision was made superior to the left iliac crest and Bovie electrocautery was dissect down to the subcutaneous tissue down to the level of fascia. Fascia was then incised parallel to the external oblique muscle fibers and the muscle layers of the abdominal wall split individually until ultimately entered into the retroperitoneal space. Hand-held retractors were then placed in the wound and blunt dissection used to dissect posteriorly to the psoas muscle. Once this was visualized the Syne frame self- retaining retractor brought on the field in position. Self-retaining retractors then put in position and the psoas muscle mobilized posterior laterally abdominal contents mobilized anteromedially until the lateral aspect of the disc space was visualized. Once satisfactory exposure was obtained Dr. Doran performed the discectomy and implant placement which he will describe in greater detail in a separate dictation. Once the implant was secured the retroperito neum was inspected for hemostasis and the abdominal contents allowed to return to their [place] position. The abdominal musculature was then closed in running fashion individually with 1 Vicryl. Finally superficial layers were closed with Vicryl followed by Monocryl and Steri-Strips were applied. At the conclusion of this portion of the procedure the patient was repositioned for posterior approa ch with Dr. Doran which she will dictate separately.
== END 2024-06-13 11:47 | disposition home or self-care (01) | DRG 455 ==
LOC: MS3 06-15 08:49 → ACINP 06-15 08:49
PROVIDERS: Anesthesiology; Internal Medicine; Orthopaedic Surgery Sports Medicine; Admitting Provider Orthopaedic Surgery Orthopaedic Surgery of the Spine; Visit Provider Orthopaedic Surgery
PROC: 0SG00A0 Fusion of Lumbar Vertebral Joint with Interbody Fusion Device, Anterior Approach, Anterior Column, Open Approach (ICD-10-PCS; principal; 2024-06-11 07:00)
DX: M48.062 Spinal stenosis, lumbar region with neurogenic claudication (principal); I12.9 Hypertensive chronic kidney disease with stage 1 through stage 4 chronic kidney disease, or unspecified chronic kidney disease; N18.2 Chronic kidney disease, stage 2 (mild); M10.9 Gout, unspecified; K21.9 Gastro-esophageal reflux disease without esophagitis; M43.16 Spondylolisthesis, lumbar region; M54.16 Radiculopathy, lumbar region; Z79.899 Other long term (current) drug therapy; N40.0 Benign prostatic hyperplasia without lower urinary tract symptoms
CPT/HCPCS: 36415; 72100; 76000; 80048; 82962; 83735; 85025; 86850; 86900; 86901; 87081; 93005; 94668; 97116; 97162; 97530; A4648; C1713; J7120; J2405; J3475